=== PATIENT | female | born 1995 | race Caucasian/White ===

== ENCOUNTER 2020-08-03 20:37 | Emergency (ER) | payer OTHER, SELFPAY ==
--- NOTE | ~2020-08-03 | XR_ITS ---
EXAMINATION: XR thoracic spine 2V EXAM DATE: 08/03/2020 23:37 INDICATION: Mid back pain. TECHNIQUE: Frontal and lateral projections of the thoracic spine as well as lateral swimmers projecti on of the upper thoracic spine for interpretation. There is no prior study for comparison. FINDINGS: The vertebral bodies are aligned in the AP dimension. Vertebral body and disc heights are well-maintained. No endplate erosive change. Tiny Schmorl's nodes at T7 and T8 inferior endplates. Pa raspinal soft tissue is unremarkable. IMPRESSION: Tiny midthoracic Schmorl's nodes. Reviewed, dictated and finalized at location G.
--- NOTE | ~2020-08-03 | XR_ITS ---
EXAMINATION: XR pelvis 1-2V EXAM DATE: 08/03/2020 23:37 INDICATION: Bilateral anterior hip pain. No known recent injury provided at this time. TECHNIQUE: Pelvis frontal projection(s) obtained and reviewed. There is no prior study for compariso n. FINDINGS: The hip joints are symmetric and normal in appearance as are the sacroiliac joints. No evid ence of avascular necrosis. There are no acute fractures or dislocations identified. There is no sub cutaneous gas. The soft tissue is unremarkable. There are no radiopaque foreign bodies. IMPRESSION: 1. Unremarkable pelvis x-ray exam. Reviewed, dictated and finalized at location G.
--- NOTE | ~2020-08-03 | XR_ITS ---
EXAMINATION: XR lumbar spine 2-3V EXAM DATE: 08/03/2020 23:36 INDICATION: Low back pain. TECHNIQUE: Lumber spine frontal, lateral, lateral L5-S1 projections for interpretation. There is no prior study for comparison. FINDINGS: Mild lumbar levoscoliosis. No spondylolysis. The vertebral bodies are aligned in the AP di mension. Vertebral body and disc heights are well-maintained. Sacrum, sacroiliac joints, sacral arcua te lines are intact. Paraspinal soft tissue is unremarkable. The facet joints are unremarkable. IMPRESSION: Mild lumbar levoscoliosis. Reviewed, dictated and finalized at location G. IMPRESSION: Mild lumbar levoscoliosis.
[2020-08-03 20:44] VITALS: BP 134/71; PULSE 118; RESP 17; TEMP 37.1; O2SAT 100
[2020-08-03 20:58] VITALS: BP 143/77; PULSE 101; RESP 20; TEMP 36.6; O2SAT 100
--- NOTE | 2020-08-03 22:30 | ED.GENADULT ---
HPI - General Adult General Chief complaint: Back Pain/Injury Stated complaint: back pain, hips/chills Time Seen by Provider: 08/03/20 22:13 Source: patient History of Present Illness HPI narrative: Patient is a 24 y/o female complaining of back pain, bilateral hip pain starting 8-9 hours ago. She states that her pain in the back is sharp and pain in the hips is burning. She rates her pain as 7/10. She took OTC Ibuprofen which did not help. She denies any recent injury. She denies any pain radiation to legs. She has no leg pain or weakness. She is able to ambulate. She denies any difficulty with urination or bowel movement. She had one episode of diarrhea earlier today. She feels like her skin hurts everywhere. Related Data Allergies Allergy/AdvReac Type Severity Reaction Status Date / Time No Known Allergies Allergy Verified 08/03/20 20:38 Review of Systems Constitutional: Constitutional: Reports chills, Denies fever(s), Denies headache(s) and Denies weakness Eyes: Eyes: Denies blurry vision ENT: Denies headache(s) and Denies neck pain Cardiovascular: Cardiovascular: Denies chest pain and Denies dyspnea Respiratory: Respiratory: Denies cough and Denies dyspnea Gastrointestinal: Gastrointestinal: Denies abdominal pain, Denies diarrhea, Denies nausea and Denies vomiting Genitourinary: Genitourinary: Denies hematuria and Denies dysuria Musculoskeletal: Musculoskeletal: Reports back pain, Reports myalgias, Reports arthralgias (hip pain) and Reports neck pain Integumentary/Breasts: Comments: pain in skin Neurologic: Denies headache(s) and Denies weakness [facility] Social History Social History Gender identity (if verbalized by the patient): Female Exam Const: General: no acute distress and well developed Orientation/consciousness: oriented to person, oriented to place, oriented to time and patient oriented x3 HENMT: Head: normocephalic Ears: external ears normal General nose exam: Normal external nose present Eyes: General: appearance normal, both eyes and all related structures Conjunctivae: conjunctivae normal Neck: Neck: normal visual inspection and full ROM Chest: Chest palpation & inspection: normal inspection of the chest and no tenderness Resp: Effort & Inspection: normal respiratory effort and able to speak in complete sentences Cardio: Rate: regular rate Rhythm: regular rhythm GI: GI Palp: No abdominal tenderness and Yes Soft to palpation Skin: General skin exam: normal color and turgor normal Rashes: no rashes Neuro: General: oriented to person, oriented to place, oriented to time and patient oriented x3 Cognition (Neuro): normal cognition Speech: normal speech Motor exam (neuro): 5/5 motor strength present throughout Sensory Exam: normal sensation Extrem: General: normal to inspection, full ROM and no pedal edema Psych: Appearance: grossly normal Mental Status: mental status grossly normal Affect: normal affect Course Reevaluation(s) Reevaluation #1: Rechecked. Patient feels better. Severity of back pain is decreased. She has some headache. Discussed with patient about labs and xray results. Instructed patient to return if her symptoms worsen. Date: 08/04/20 Time: 00:57 Vital Signs Vital signs: Vital Signs Temperature 37.1 C 08/03/20 20:44 Pulse Rate 118 H 08/03/20 20:44 Respiratory Rate 17 08/03/20 20:44 Blood Pressure 134/71 08/03/20 20:44 Pulse Oximetry 100 08/03/20 20:44 Temperature 36.6 C 08/03/20 20:58 Pulse Rate 77 08/04/20 01:19 Respiratory Rate 16 08/04/20 01:19 Blood Pressure 104/57 L 08/04/20 01:19 Pulse Oximetry 99 08/04/20 01:19 Medical Decision Making Vital Signs Vital Signs: Vital Signs Temperature 37.1 C 08/03/20 20:44 Pulse Rate 118 H 08/03/20 20:44 Respiratory Rate 17 08/03/20 20:44 Blood Pressure 134/71 08/03/20 20:44 Pulse Oximetry 100 08/03/20 20:44
[2020-08-03] MEDS: KETOROLAC 30 MG/ML VIAL (*BKC) IV PUSH (22:43)
[2020-08-03] MEDS: CYCLOBENZAPRINE HCL 10 MG TABLET PO (22:43)
[2020-08-03 22:48] LABS: Basophils Percent Auto 0.1 % (0.2-1.2); Hematocrit 44.3 % (37.0-47.0); Hemoglobin 15.3 g/dL (12.0-15.0); Immature Granulocyte Absolute 0.06 K/mm3 (0.00-0.031); Immature Granulocyte Percent A 0.4 % (0-0.5); Lymphocytes Absolute Auto 1.01 K/mm3 (0.9-3.2); Lymphocytes Percent Auto 7.2 % (18.3-44.2); Mean Corpuscular HGB Conc 34.5 g/dl (32-36); Mean Corpuscular Hemoglobin 29.7 pg (26-34); Mean Corpuscular Volume 85.9 fl (80-100); Mean Platelet Volume 10.6 fl (7.4-10.4); Monocytes Absolute Auto 1.1 K/mm3 (0.1-0.6); Monocytes Percent Auto 7.6 % (2.6-8.5); Neutrophils Absolute Auto 11.9 K/mm3 (1.3-6.7); Neutrophils Percent Auto 84.7 % (45.5-73.1); Platelet Count Result 175 k/mm3 (150-375); Red Blood Count 5.16 M/mm3 (4.2-5.4); Red Cell Distribution Width 12.5 % (11.5-14.5)
[2020-08-03 23:01] LABS: Alanine Aminotransferase 16 U/L (4-35); Albumin Level 4.6 g/dL (3.5-5.1); Alkaline Phosphatase 97 U/L (38-126); Anion Gap 11 mmol/L (8-16); Aspartate Amino Transferase 27 U/L (14-36); Bilirubin,Total 0.8 mg/dL (0.2-1.3); Blood Urea Nitrogen 14 mg/dL (7-17); CRP 2.5 mg/dL (<1.0); Calcium 9.7 mg/dL (8.4-10.2); Carbon Dioxide 22 mmol/L (22-30); Chloride 106 mmol/L (98-107); Estimated CRCL calculation 93 ml/min; Estimated Glomerular Filt Rate > 60; Glucose 99 mg/dL (65-105); Potassium 4.1 mmol/L (3.4-5.0); Sodium 139 mmol/L (137-145)
[2020-08-03 23:21] LABS: Add Urine Microscopic? YES; Appearance Urine Clear (Clear); Bacteria Urine Trace /hpf; Bilirubin Urine Negative (Negative); Blood Urine Negative (Negative); Color Urine Yellow (Yellow); Glucose Urine UA Negative (Negative); Ketones Urine 2+ mg/dL (Negative); Leukocyte Esterase Ur Trace LEU/UL (Negative); Mucus Urine Few /lpf; Nitrate Urine Negative (Negative); Protein Urine Negative (Negative); Specific Grav Ur 1.027 (1.001-1.035); Squamous Epithelial Cell Urine Many /hpf (Few); Urobilinogen Urine Negative mg/dL (<2.0)
[2020-08-03 23:25] LABS: Erythrocyte Sedimentation Rate 1 mm/hr (0-20)
[2020-08-03] MEDS: SODIUM CHLORIDE 0.9% IV 1,000 ML 999 ML IV CONT (23:43)
[2020-08-04] MEDS: traMADol HCL (*CRX) 50 MG TABLET PO (00:31)
[2020-08-04] MEDS: diazePAM INJ (*CRX) 10 MG/2 ML SYRINGE 5 MG IV PUSH (00:32)
[2020-08-04 01:19] VITALS: BP 104/57; PULSE 77; RESP 16; O2SAT 99
== END 2020-08-04 01:20 | disposition home or self-care (01) ==
PROVIDERS: Emergency Provider Emergency Medicine
DX: M54.89 Other dorsalgia (principal); R51.9 Headache, unspecified
CPT/HCPCS: 36415; 72070; 72100; 72170; 80053; 81001; 85025; 85652; 86140; 96361; 96374; 99284; A9270; J1885; J3360; J7030

== ENCOUNTER 2020-08-08 19:44 | Emergency (ER) | payer OTHER, SELFPAY ==
--- NOTE | ~2020-08-08 | XR_ITS ---
XR chest 2V DATE: 08/08/2020 20:27 INDICATION: Dizziness TECHNIQUE: PA and lateral views COMPARISON: None FINDINGS: Normal heart size. No hilar or mediastinal enlargement. No pulmonary infiltrate or consol idation, pulmonary vascular congestion or pleural effusion or pneumothorax. IMPRESSION: Negative Reviewed, dictated and finalized at location A. IMPRESSION: Negative
--- NOTE | ~2020-08-08 | CT_ITS ---
EXAMINATION: CT brain wo con DATE: 08/08/2020 20:18 INDICATION: Dizziness TECHNIQUE: Computed tomography (CT) of the head was performed without intravenous contrast. The mA wa s adjusted according to patient size. Iterative reconstruction technique was employed. Exam dose: 60 5.33 mGy-cm total exam DLP. COMPARISON: None FINDINGS: No intracranial mass lesion or hemorrhage or cerebrovascular accident is detected. There is no midline shift or mass effect. Normal ventricular size. No subdural or epidural hematoma is detect ed. No fracture or bone destruction of the cranial vault. The mastoid air cells and included paranasal sinuses are normally developed and aerated. IMPRESSION: No significant abnormality Reviewed, dictated and finalized at Location A. Reviewed, dictated and finalized at location A. IMPRESSION: No significant abnormality
--- NOTE | 2020-08-08 19:46 | ED.NAVMDI ---
HPI - Nausea/Vomiting/Diarrhea General Chief complaint: Dizziness Stated complaint: dizziness, nauseated, diarrhea Time Seen by Provider: 08/08/20 19:46 Source: patient Mode of arrival: ambulatory Limitations: no limitations History of Present Illness HPI Narrative: Patient is a healthy 24 yo female who presents for nausea and dizziness. Pt reports dizziness this morning, and has had difficulty walking. She reports dizziness persists when not moving, however she reports it is worse with movement. She denies headache, blurry vision, numbness or weakness. No chest pain, shortness of breath, abdominal pain, dysuria or hematuria. No recent sick contacts. Pt denies cough or fever. She was evaluated here 5 days prior for hip pain, arthralgias and was discharged home. Found to have a leukocytosis with negative work up otherwise. Pt denies rhinorrhea, sore throat, ear pain. No recent sick contacts. Pt with negative COVID swab test on . Related Data Allergies Allergy/AdvReac Type Severity Reaction Status Date / Time No Known Allergies Allergy Verified 08/08/20 19:57 Review of Systems Review of Systems: Narrative: CONSTITUTIONAL: Denies fever, chills, or sweats. EYES: Denies visual changes ENT: Denies rhinorrhea, congestion, sore throat, or otalgia. CARDIOVASCULAR: Denies chest pain, palpitations, or edema. RESPIRATORY: Denies cough or dyspnea. GASTROINTESTINAL: Denies abdominal pain,reports nausea and vomiting GENITOURINARY: Denies dysuria or hematuria. SKIN: Denies rash or itching. MUSCULOSKELETAL: Denies back pain, joint pain, or myalgia. NEUROLOGIC: Denies headache, numbness, or weakness.Reports dizziness. [facility] Past Medical History Medical History (Updated 08/08/20 @ 21:49 by Lita Dowell MD) No pertinent past medical history Social History Social History (Updated 08/08/20 @ 20:10 by Lita Dowell MD) Smoking status: Never smoker Alcohol intake: current Alcohol use details: Social, rarely Substance use: never Living arrangements: alone Occupation/Education: student Gender identity (if verbalized by the patient): Female Exam Narrative: Exam Narrative: GENERAL: Awake, alert, conversant HEAD: Normocephalic, atraumatic. EYES: 2+ PERRLA and EOMI. Right-sided, fatigable, horizontal nystagmus. No direction changing. ENT: Nares clear, no rhinorrhea or epistaxis. Mucous membranes moist. TMs clear bilaterally. No effusion. No sign of otitis media. NECK: Supple. No neck rigidity, lymphadenopathy or pain. CHEST: No respiratory distress, breathing even and non labored HEART: Regular rate, sinus rhythm ABDOMEN:Non distended, non tender EXTREMITIES: Normal range of motion. No edema. SKIN: Warm, dry, no rash. NEURO:No focal deficits. Alert and oriented x3. Finger to nose intact bilaterally. EOMs intact without nystagmus. No facial droop/asymmetry noted bilaterally. Grimace intact. Intact sensation in face. Hearing intact bilaterally. Shoulder shrug intact. Strength 5/5 bilateral upper extremities. Strength 5/5 bilateral lower extremities. Reflexes 2+ patellar. Heel to nava intact bilaterally. Ambulatory exam deferred. Course Vital Signs Vital signs: Vital Signs Temperature 36.8 C 08/08/20 19:50 Pulse Rate 76 08/08/20 19:50 Respiratory Rate 14 08/08/20 19:50 Blood Pressure 123/91 H 08/08/20 19:50 Pulse Oximetry 99 08/08/20 19:50 Temperature 36.8 C 08/08/20 19:50 Pulse Rate 97 08/08/20 22:41 Respiratory Rate 16 08/08/20 22:41 Blood Pressure 108/77 08/08/20 22:41 Pulse Oximetry 100 08/08/20 22:41 MDM - Nausea/Vomiting/Diarrhea MDM Narrative Medical decision making narrative: Patient presenting for evaluation of nausea, dizziness. Dizziness sounds vertiginous given spinning sensation which is worsened with movement. At the time of assessment, ABCs are intact and vital signs are stable. Patient is neurologically intact. She is afebrile, has no headache, no v
[2020-08-08 19:50] VITALS: BP 123/91; PULSE 76; RESP 14; TEMP 36.8; O2SAT 99
--- NOTE | 2020-08-08 20:06 | ECG_ITS ---
Measurements Intervals [place] Rate: 72 P: 18 ND: 120 QRS: 55 QRSD: 90 T: 29 QT: 366 QTc: 401 Interpretive Statements SINUS RHYTHM WITH SINUS ARRHYTHMIA BORDERLINE ST-T WAVE ABNORMALITY- INFERIOR LEADS BASELINE WANDER- I, II BORDERLINE ECG Electronically Signed On 08-09-2020 7:57:17 CDT by Mode Ratliff D.O.
[2020-08-08 20:35] VITALS: BP 123/76; PULSE 79; RESP 14; O2SAT 98
[2020-08-08] MEDS: MECLIZINE HCL 25 MG TABLET PO (20:36)
[2020-08-08] MEDS: ONDANSETRON INJ 4 MG/2 ML VIAL IV PUSH (20:36)
[2020-08-08] MEDS: SODIUM CHLORIDE 0.9% IV 1,000 ML 999 ML IV CONT ×2 (20:36→22:07)
[2020-08-08 20:40] LABS: Basophils Percent Auto 0.3 % (0.2-1.2); Eosinophils Percent Auto 0.3 % (0-4.4); Hematocrit 45.5 % (37.0-47.0); Hemoglobin 15.7 g/dL (12.0-15.0); Immature Granulocyte Absolute 0.03 K/mm3 (0.00-0.031); Immature Granulocyte Percent A 0.4 % (0-0.5); Lymphocytes Absolute Auto 2.88 K/mm3 (0.9-3.2); Lymphocytes Percent Auto 37.7 % (18.3-44.2); Mean Corpuscular HGB Conc 34.5 g/dl (32-36); Mean Corpuscular Hemoglobin 29.3 pg (26-34); Mean Platelet Volume 10.2 fl (7.4-10.4); Monocytes Absolute Auto 0.5 K/mm3 (0.1-0.6); Monocytes Percent Auto 6.9 % (2.6-8.5); Neutrophils Absolute Auto 4.2 K/mm3 (1.3-6.7); Neutrophils Percent Auto 54.4 % (45.5-73.1); Platelet Count Result 251 k/mm3 (150-375); Red Blood Count 5.35 M/mm3 (4.2-5.4); Red Cell Distribution Width 12.3 % (11.5-14.5); White Blood Count 7.6 K/mm3 (4.5-10.0)
[2020-08-08 20:52] LABS: Alanine Aminotransferase 14 U/L (4-35); Albumin Level 4.8 g/dL (3.5-5.1); Alkaline Phosphatase 87 U/L (38-126); Anion Gap 12 mmol/L (8-16); Aspartate Amino Transferase 21 U/L (14-36); Bilirubin,Total 0.5 mg/dL (0.2-1.3); Blood Urea Nitrogen 8 mg/dL (7-17); Calcium 10.3 mg/dL (8.4-10.2); Carbon Dioxide 22 mmol/L (22-30); Chloride 107 mmol/L (98-107); Estimated Glomerular Filt Rate > 60; Glucose 88 mg/dL (65-105); Lipase 29 U/L (23-300); Potassium 3.8 mmol/L (3.4-5.0); Sodium 141 mmol/L (137-145)
[2020-08-08 21:04] LABS: Add Urine Microscopic? YES; Amorphous Sediment Urine Few; Appearance Urine Cloudy (Clear); Bacteria Urine 3+ /hpf; Bilirubin Urine Negative (Negative); Blood Urine Negative (Negative); Color Urine Yellow (Yellow); Glucose Urine UA Negative (Negative); Ketones Urine 2+ mg/dL (Negative); Leukocyte Esterase Ur Trace LEU/UL (Negative); Mucus Urine Few /lpf; Nitrate Urine Negative (Negative); Protein Urine 1+ mg/dL (Negative); Squamous Epithelial Cell Urine Many /hpf (Few); Urobilinogen Urine Negative mg/dL (<2.0)
[2020-08-08 22:02] VITALS: BP 104/67; PULSE 95; RESP 16; O2SAT 98
[2020-08-08 22:41] VITALS: BP 108/77; PULSE 97; RESP 16; O2SAT 100
== END 2020-08-08 22:42 | disposition home or self-care (01) ==
PROVIDERS: Emergency Provider Emergency Medicine
DX: R42 Dizziness and giddiness (principal); R94.31 Abnormal electrocardiogram [ECG] [EKG]
CPT/HCPCS: 36415; 70450; 71046; 80053; 81001; 81025; 83690; 85025; 93005; 96374; 99284; A9270; J2405; J7030

== ENCOUNTER 2020-12-29 18:28 | Emergency (ER) | payer OTHER, SELFPAY ==
--- NOTE | ~2020-12-29 | XR_ITS ---
XR knee RT 3V 12/29/2020 19:06 INDICATION: Right knee pain PROCEDURE: 3 views right knee COMPARISON: No prior studies for comparison. FINDINGS: Fracture, dislocation or subluxation is not identified. The soft tissues appear within norm al limits. No foreign bodies are identified. IMPRESSION: 1: NO ACUTE BONE OR JOINT ABNORMALITY IDENTIFIED. Reviewed, dictated and finalized at location A. LING MACHINE OPERATOR
--- NOTE | ~2020-12-29 | XR_ITS ---
XR ankle RT min 3V 12/29/2020 19:52 INDICATION: Right ankle pain PROCEDURE: 4 views right ankle COMPARISON: Right foot series dated 12/29/2020 FINDINGS: Fracture, dislocation or subluxation is not identified. Ankle mortise intact. Mild lateral soft tissue swelling. Small joint effusion. No foreign bodies are identified. IMPRESSION: 1: NO ACUTE BONE OR JOINT ABNORMALITY IDENTIFIED. Reviewed, dictated and finalized at location A. [employer]
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
[2020-12-29 18:31] VITALS: BP 129/74; PULSE 88; RESP 20; TEMP 36.2; O2SAT 100
--- NOTE | 2020-12-29 19:30 | ED.FALL ---
HPI - Fall General Chief Complaint: Fall Stated Complaint: right leg injury Time Seen by Provider: 12/29/20 19:12 History of Present Illness HPI Narrative: healthy 25 yo female presents to the ED after a fall. She was roller blading when her right leg twisted underneath her. She felt a pop and has pain on the medial side of the right knee. She also has pain anterior and inferior to the lateral malleolus. This area has begun to swell. She has been able to bear weight. Related Data Home Medications Medication Instructions Recorded Confirmed etonogestrel [Nexplanon] 1 implant SUBDERMAL ONCE 12/29/20 12/29/20 Allergies Allergy/AdvReac Type Severity Reaction Status Date / Time No Known Allergies Allergy Verified 12/29/20 19:46 Review of Systems Review of Systems: All systems reviewed & are unremarkable except as noted in HPI and below PMFSH Past Medical History Medical History No pertinent past medical history Social History Social History Smoking status: Never smoker Alcohol intake: current Substance use: never Gender identity (if verbalized by the patient): Female Exam Const: General: healthy appearing, no acute distress and alert Nutritional Appearance: well nourished Orientation/consciousness: patient oriented x3 HENMT: Head: normal to inspection, no contusions and no lacerations Neck: Neck: normal visual inspection Resp: Effort & Inspection: normal respiratory effort Cardio: Other: 2+ right DP and PT Skin: General skin exam: normal color Wounds: no wounds Neuro: General: patient oriented x3, moves all extremities, no focal motor deficits and CN's II-XI intact bilaterally Speech: normal speech Other: antalgic gait Extrem: Other: Right knee grossly normal. Some apprehension on lateral stress. Tenderness and swelling over right ATFL Course Vital Signs Vital signs: Vital Signs Temperature 36.2 C L 12/29/20 18:31 Pulse Rate 88 12/29/20 18:31 Respiratory Rate 20 12/29/20 18:31 Blood Pressure 129/74 12/29/20 18:31 Pulse Oximetry 100 12/29/20 18:31 Temperature 37.1 C 12/29/20 19:41 Pulse Rate 93 12/29/20 19:41 Respiratory Rate 18 12/29/20 19:41 Blood Pressure 125/93 H 12/29/20 19:41 Pulse Oximetry 100 12/29/20 19:41 MDM - Fall Differential Diagnosis Differential diagnosis: Likely other (ankle fracture, knee sprain, medial meniscus tear) Medical Records Attestation: I reviewed the patient's medical records. Imaging Data Radiologist's impression: ITS Impressions Knee X-Ray 12/29/20 19:10 IMPRESSION: 1: NO ACUTE BONE OR JOINT ABNORMALITY IDENTIFIED. Foot X-Ray 12/29/20 19:11 IMPRESSION: 1: NO ACUTE BONE OR JOINT ABNORMALITY IDENTIFIED. Ankle X-Ray 12/29/20 19:56 IMPRESSION: 1: NO ACUTE BONE OR JOINT ABNORMALITY IDENTIFIED. Discharge Plan Discharge Clinical Impression: Right ankle sprain, Knee pain Patient Disposition: Home, Self-Care Condition: Stable Instructions: Ankle Sprain (ED), Knee Pain (ED) Prescriptions: No Action Nexplanon 68 mg Implant 1 implant SUBDERMAL ONCE RF: 0 Follow-up/Referrals: PHYSICIAN,NURSING UNIT COORDINATOR [Primary Care Provider] - Stand Alone Forms: Work/School Release IP
[2020-12-29 19:41] VITALS: BP 125/93; PULSE 93; RESP 18; TEMP 37.1; O2SAT 100
== END 2020-12-29 20:40 | disposition home or self-care (01) ==
PROVIDERS: Emergency Provider Emergency Medicine
DX: M25.561 Pain in right knee (principal); S93.401A Sprain of unspecified ligament of right ankle, initial encounter; V00.111A Fall from in-line roller-skates, initial encounter; Y93.51 Activity, roller skating (inline) and skateboarding
CPT/HCPCS: 73562; 73610; 73630; 99284

== ENCOUNTER 2021-04-02 12:37 | Emergency (ER) | payer OTHER, SELFPAY ==
--- NOTE | 2021-04-02 12:51 | ED.EAR ---
HPI - Ear Problem General Chief complaint: Ear Stated complaint: EARACHE History of Present Illness HPI Narrative: This is a 25-year-old that is complaining of left ear pain according to patient yesterday she went swimming in a [place] immediately when she started jumping in the [place] she felt immediate pressure and pain as well as pain in her jawline. The pain is not there anymore but she still feels pressure and irritation to her ear. Patient states she used a Q-tip to try to assist it but to no avail Related Data Home Medications Medication Instructions Recorded Confirmed etonogestrel [Nexplanon] 1 implant SUBDERMAL ONCE 12/29/20 12/29/20 amitriptyline 10 mg PO HS 04/02/21 04/02/21 Allergies Allergy/AdvReac Type Severity Reaction Status Date / Time No Known Allergies Allergy Verified 12/29/20 19:46 Review of Systems Review of Systems: Narrative: CONSTITUTIONAL: Denies fever, chills, or sweats. EYES: Denies visual changes, redness, or discharge. ENT: Denies rhinorrhea, congestion, sore throat, or reports otalgia. CARDIOVASCULAR:Denies chest pain, palpitations, or edema. RESPIRATORY: Denies cough or dyspnea. GASTROINTESTINAL: Denies abdominal pain, nausea, vomiting, or diarrhea. GENITOURINARY: Denies dysuria or hematuria. SKIN:[Denies rash or itching. MUSCULOSKELETAL:Denies back pain, joint pain, or myalgia. NEUROLOGIC: Denies headache, numbness, or weakness. PSYCHIATRIC:Denies anxiety or depression PMFSH Past Medical History Medical History No pertinent past medical history Social History Social History Smoking status: Never smoker Alcohol intake: current Substance use: never Gender identity (if verbalized by the patient): Female Comments At time as signature, I have reviewed and agree with nursing past medical, social, surgical and family history. Please see nursing chart for further information. There is no relevant family history pertinent to the presenting complaint. Exam Narrative: Exam Narrative: GENERAL:Well-appearing, well-nourished, and in no acute distress. HEAD:Normocephalic, atraumatic. EYES: PERRLA and EOMI. ENT: Nares clear, no rhinorrhea or epistaxis. Mucous membranes moist. Left ear TM bulging 4 -5 red areas noted NECK: Supple. CHEST: Clear to auscultation. No respiratory distress. HEART: Regular rate and rhythm. No murmur heard. Normal peripheral pulses. ABDOMEN: Soft, nontender, nondistended, normal active bowel sounds. EXTREMITIES: Normal range of motion. No edema. SKIN: Warm, dry, no rash. NEURO: No focal deficits. Alert and oriented x3. Discharge Plan Discharge Clinical Impression: Otitis media Patient Disposition: Home, Self-Care Condition: Stable Instructions: Antibiotic Form, Ear Infection (AC), Fluid In The Ear (Serous Otitis Media) (ED) Additional Instructions: Large most people who have a cold do not need to see the doctor or nurse. But you should call your doctor or nurse if you have: ?A fever of more than 100.4? F (38? C) that comes with shaking chills, loss of appetite, or trouble breathing ?A fever and also have lung disease, such as emphysema or asthma ?A cough that lasts longer than 10 days ?Chest pain when you cough, trouble breathing, or coughing up blood No Qtips and do not get ear wet for the next few days You need to schedule an appointment with your primary care provider in about 7 days to ensure healing Patient Language: Thai Prescriptions: New loratadine [Claritin] 10 mg tablet 10 mg PO DAILY Qty: 30 RF: 0 amoxicillin-pot clavulanate [Augmentin] 875-125 mg tablet 1 tablet PO Q12H 10 Days Qty: 20 RF: 0 No Action amitriptyline 10 mg Tablet 10 mg PO HS RF: 0 Nexplanon 68 mg Implant 1 implant SUBDERMAL ONCE RF: 0 Follow-up/Referrals: PHYSICIAN NOT ON STAFF,NONSTAFF [Primary Care Pro
== END 2021-04-02 13:12 | disposition home or self-care (01) ==
PROVIDERS: Emergency Provider Nurse Practitioner Family
DX: H66.92 Otitis media, unspecified, left ear (principal)
CPT/HCPCS: 99213; G0463